=== PATIENT | male | born 1960 | race Caucasian/White ===

== ENCOUNTER 2016-08-09 21:21 | Emergency (ER) | payer OTHER ==
[~2016-08-09] VITALS: Ht 182.9 cm; Wt 108.9 kg
[~2016-08-09 21:21] MED LIST: ABILIFY 5 MG TAB5 M1 PO; ABILIFY MAINTE400 MG IM; ADVAIR 250-501 EACH IH; ALBUTEROL2.5 MG/31 INH; AMANTADINE 100100 MG PO; APAP500 PO; BACTRIM DS TAB1 EACH PO; BACTROBAN15 GM TP; BACTROBAN22 GM; BENTYL 20 MG TA20 M1 PO; BENZTROPINE ME0.5 MG PO; DEPAKOTE ER500 MG PO; DEPAKOTE500 MG PO; DYAZIDE 37.5-21 EACH PO; GEODON 80 MG CA80 MG PO; GEODON20 MG PO; GEODON60 MG PO; GLUCOPHAGE850 MG PO; GLUMETZA500 PO; GLYCOLAX17 GM PO; IBUPROFEN 400400 M2 PO; IBUPROFEN 800800 M1 PO; MIRALAX17 GM PO; MOM PO; OMEPRAZOLE20 M2 PO; PEPTO-BISM262 MG/15 PO; SEROQUEL 50 MG50 M1 PO; SEROQUEL200 MG PO; TAMSULOSIN HCL0.4 MG PO; TIROSINT100 MCG PO; TRIAMTERENE-HC1 EAC3 PO; [UNRECOGNIZED DRUG - OTHER] PO
[2016-08-09 21:47] LABS: BASOPHILS 0.7 % (0.0-2.0); EOSINOPHILS 0.1 % (0.0-3.0); HEMATOCRIT 41.8 % (42.0-52.0); HEMOGLOBIN 14.3 gm/dL (14.0-18.0); LYMPHOCYTES 10.7 % (24.0-44.0); MCH 28.9 pg (26.0-34.0); MCHC 34.2 g/dL (28.0-37.0); MCV 84.5 fL (80.0-100.0); PLATELET COUNT 236 thou/uL (150-400); POLYS 82.5 % (36.0-66.0); RBC 4.94 mil/uL (4.50-6.00); RDW 15.2 % (10.5-14.5); WBC 13.4 thou/uL (4.0-11.0)
[2016-08-09 21:48] LABS: MANUAL DIFF NO
[2016-08-09 21:57] LABS: CALCIUM 9.2 mg/dL (8.5-10.1); CREATININE 0.8 mg/dL (0.7-1.3); POTASSIUM 4.3 mmol/L (3.5-5.1)
[2016-08-09 22:02] LABS: ALBUMIN 3.7 g/dL (3.4-5.0); DIRECT BILIRUBIN 0.1 mg/dL (<0.1-0.3); TOTAL BILIRUBIN 0.6 mg/dL (<0.1-1.0); TOTAL PROTEIN 8.4 g/dL (6.4-8.2)
[2016-08-09 22:57] LABS: URINE BILIRUBIN NEGATIVE (Negative); URINE BLOOD NEGATIVE (Negative); URINE COLOR YELLOW; URINE GLUCOSE-RANDOM* NEGATIVE (Negative); URINE KETONES 1+ (Negative); URINE LEUKOCYTES-REFLEX NEGATIVE (Negative); URINE PROTEIN (DIPSTICK) 1+ (Negative)
[2016-08-09 23:13] LABS: HYALINE CASTS 0-3 Few /LPF (None Seen)
[2016-08-09 23:14] LABS: CRYSTALS None Seen /LPF (None Seen); SQUAMOUS None Seen /LPF (0-3); URINE RBC 3-10 Few /HPF (0-2); URINE WBC-REFLEX 6-15 Few /HPF (0-5); WBC CLUMPS Rare (None Seen)
[2016-08-09] MEDS ORDERED: BACTRIM DS TAB1 EACH PO (23:40)
[2016-08-09] MEDS ORDERED: LIPITOR40 MG PO (23:58)
[2016-08-09] MEDS ORDERED: LISINOPRIL20 MG PO (23:58)
[2016-08-10] MEDS ORDERED: BISMATROL262 MG/15 PO (00:01)
[2016-08-10] MEDS ORDERED: TUSSID DM SYRU240 ML PO (00:02)
== END 2016-08-10 00:35 ==
LOC: ER 21:21
PROVIDERS: Emergency Medicine
DX: R41.82 Altered mental status, unspecified (principal); N39.0 Urinary tract infection, site not specified; R51 Headache; J44.9 Chronic obstructive pulmonary disease, unspecified; I10 Essential (primary) hypertension; E11.9 Type 2 diabetes mellitus without complications; E66.9 Obesity, unspecified; Z68.32 Body mass index [BMI] 32.0-32.9, adult; F25.9 Schizoaffective disorder, unspecified

== ENCOUNTER → 2016-10-08 | Outpatient (CLI) | payer OTHER ==
[~2016-10-08] MED LIST changes: +BISMATROL262 MG/15 PO; +LIPITOR40 MG PO; +LISINOPRIL20 MG PO; +TUSSID DM SYRU240 ML PO
== END ==
LOC: RAD 10:37
DX: M25.561 Pain in right knee (principal)

== ENCOUNTER → 2017-07-31 | Outpatient (CLI) | payer OTHER | LOC: RAD 16:31 | DX: M25.462 Effusion, left knee (principal) ==

== ENCOUNTER 2018-07-09 22:34 | Inpatient (IN) | payer OTHER ==
[~2018-07-09] VITALS: Ht 188 cm; Wt 113.9 kg
--- NOTE | ~2018-07-09 | H ---
[facility] [place] [address] HISTORY AND PHYSICAL Name: YASH NAIK Room #: 240-P [facility] IN M.R.#: [id number] Admission: 07/10/18 ������������������ Attend Phys: Denzel Joseph MD, FAAF Discharge: ������������������ Date of : 64 Report #: [id number] THIS REPORT FOR: //name// CC: Denzel Joseph DATE OF SERVICE: 07/10/2018 CHIEF COMPLAINT: Mental status changes after aspiration; acute respiratory failure. HISTORY OF PRESENT ILLNESS: The patient is a 57-year-old white male well known to me as I have provided his primary medical care for a number of years now. He is a senior care resident with cognitive impairment, schizoaffective disorder, type 2 diabetes. 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 PAST MEDICAL HISTORY: Schizoaffective disorder; cognitive defect; COPD; gastritis; endovenous laser ablation on both legs in 2006; lazy eye, left side; left arm cellulitis; hypertension; type 2 diabetes; seasonal allergies; pedal edema; obesity; glaucoma. MEDICATIONS: Macrodantin 100 mg 1 p.o. b.i.d., Depakote ER 500 mg 1 p.o. b.i.d., tamsulosin 0.4 mg p.o. daily, albuterol q.i.d. p.r.n. inhalation, ibuprofen 800 mg q. 8 hours p.r.n. pain, metformin 500 mg 1 p.o. b.i.d. with meals, Cogentin 1 mg p.o. t.i.d., lisinopril 20 mg 2 p.o. daily, atorvastatin 40 mg 1 p.o. q.p.m., Bismatrol 262 mg q. 4 hours p.r.n. dyspepsia, Advair HFA 230 mcg per 21 mcg one inhalation p.o. at bedtime, Norvasc 10 mg 1 p.o. daily, dicyclomine 20 mg p.o. with evening meals, Proscar 5 mg 1 p.o. daily, latanoprost 0.005% eyedrops 1 drop both eyes at bedtime, levothyroxine 100 mcg p.o. daily, omeprazole 20 mg p.o. q. day, metoprolol tartrate 12.5 mg 1 p.o. b.i.d., Tylenol Extra Strength 2 p.o. q. 4 hours p.r.n. pain, Flexeril 10 mg 1 p.o. t.i.d. p.r.n. muscle spasms, milk of magnesia 30 mL p.o. at bedtime p.r.n. constipation, MiraLax 17 grams p.o. at bedtime p.r.n. constipation, Robitussin Cough and Chest liquid 1 teaspoon p.o. q. 12 hours p.r.n. cough, Biofreeze topically p.r.n. left knee pain, Aristada 1064 mg IM q. 2 months. ALLERGIES: No known drug allergies. SOCIAL HISTORY: Smoked cigarettes in the distant past, nondrinker. No recreational drugs. Lives at [facility] at senior care in [place], [place]. FAMILY HISTORY: Noncontributory. [facility] [address] [place] [address] HISTORY AND PHYSICAL Name: YASH NAIK Room #: 240-P [facility] IN M.R.#: [id number] Admission: 07/10/18 ������������������ Attend Phys: Denzel Joseph MD, FAAF Discharge: ������������������ Date of : 64 Report #: [id number] REVIEW OF SYSTEMS: Dyspnea. Mental status changes. Further system review is not obtainable. OBJECTIVE: VITAL SIGNS: Temperature is 35.6, pulse 94, respirations 22, blood pressure 175/104, pulse ox on 6 liters at the time this was done was 96%. He weighs 270 pounds or 122.47 kilograms. GENERAL: He appears comfortable on a ventilator, sedated with propofol. HEENT: Pupils equal, round, and reactive to light and accommodation. Extraocular muscles are intact. NECK: Supple. COR: S1 and S2. CHEST: Few coarse breath sounds. ABDOMEN: Soft, somewhat distended, nontender. EXTREMITIES: Large, but not edematous. LABORATORY DATA AND DIAGNOSTIC STUDIES: EKG showed sinus rhythm, rate 92 with a right bundle branch block, new compared to EKG of 02/2008. Initial blood gas; pH 7.28, pCO2 70.1, pO2 128.4, bicarb 32.3, total carbon dioxide 34.5, base excess 3.3, oxygen saturation calculated 98.1. CBC; white count is 10.0, hemoglobin 15.4, hematocrit 45.4, platelets 189,000, 70.8% segmented neutrophils, 21.1% lymphocytes, 7% monocytes. Serum chemistry: Sodium 134, potassium 3.8, chloride 95, CO2 31, anion gap is 8, BUN 17, creatinine 0.9, estimated GFR 88, glucose 208, calcium 9.1. Troponin is less than 0.06. Chest x-ray, initial film, possible right infrahilar pulmonary nodule with followup suggested. CT scan head, ventricular and sulcal prominence, most likely atrophic hydrocephalus, not entirely excluded; fourth ventricle relatively normal, stable compared to 2015 films; no acute process. CT scan chest, mild peribronchial thickening, left lower lobe atelectasis, developing pneumonia cannot be completely excluded; trace amount of fluid or debris is present in the airway without evidence of large solid particles; breathing motion artifact compromise evaluation, no evidence of acute pulmonary embolism, pleural effusion or pneumothorax. Soft tissue neck, no foreign body noted. ASSESSMENT: Mental status changes after aspiration, acute respiratory failure, developing aspiration pneumonia, schizoaffective disorder, cognitive impairment, type 2 diabetes. PLAN: Admit to ICU, ventilator management, and request Pulmonary consultation. We will proceed with IV antibiotics to cover aspiration. Blood sugar control, track labs serially. ��������������������������������������������� ���������������������������������������� By: ��������������������������������������������� [id number] [id number] Denzel Joseph MD, FAAFP, FACEP /nt
[~2018-07-09 22:34] MED LIST changes: -BENZTROPINE ME0.5 MG PO; +BENZTROPINE MES1 MG PO; -LISINOPRIL20 MG PO; +LISINOPRIL40 MG PO; +MACRODANTIN100 MG PO
[2018-07-09 23:02] VITALS: BP 175/104
[2018-07-09] MEDS ORDERED: ADVAIR 250-501 EACH INH (23:19)
[2018-07-09] MEDS ORDERED: AMLODIPINE BESY10 MG PO (23:20)
[2018-07-09] MEDS ORDERED: PROSCAR 5MG TABL5 MG PO (23:21)
[2018-07-09] MEDS ORDERED: DICYCLOMINE HCL20 MG PO (23:21)
[2018-07-09] MEDS ORDERED: LATANOPROST 0.7.5 ML (23:22)
[2018-07-09] MEDS ORDERED: SYNTHROID100 MC1 PO (23:22)
[2018-07-09] MEDS ORDERED: OMEPRAZOLE 20 M20 M1 PO (23:24)
[2018-07-09 23:40] LABS: ABSOLUTE NEUTROPHILS 7.1 thou/uL (1.4-8.2); BASOPHILS 0.6 % (0.0-2.0); EOSINOPHILS 0.5 % (0.0-3.0); HEMATOCRIT 45.4 % (42.0-52.0); HEMOGLOBIN 15.4 gm/dL (14.0-18.0); LYMPHOCYTES 21.1 % (24.0-44.0); MCH 30.1 pg (26.0-34.0); MCHC 33.9 g/dL (28.0-37.0); MCV 88.9 fL (80.0-100.0); PLATELET COUNT 189 thou/uL (150-400); POLYS 70.8 % (36.0-66.0); RDW 13.4 % (10.5-14.5)
[2018-07-09 23:45] LABS: ANION GAP 8 mmol/L (7-16); BUN 17 mg/dL (7-18); CALCIUM 9.1 mg/dL (8.5-10.1); CHLORIDE 95 mmol/L (98-107); CO2 31 mmol/L (21-32); CREATININE 0.9 mg/dL (0.7-1.3); GLUCOSE 208 mg/dL (74-106); POTASSIUM 3.8 mmol/L (3.5-5.1); SODIUM 134 mmol/L (136-145)
[2018-07-09 23:46] LABS: BE(vivo) -0.6 mmol/L (-2 to +3); HCO3 24.1 mmol/L (22.0-26.0); PCO2 40.3 mmHg (35.0-45.0); PO2 60.9 mmHg (80.0-100.0); pH 7.395 (7.360-7.450); sO2 91.3 % (92.0-98.0)
[2018-07-09] MEDS ORDERED: METOPROLOL TART25 MG PO (23:51)
[2018-07-09] MEDS ORDERED: NON-ASPIRIN EX500 M1 PO (23:53)
[2018-07-09 23:54] LABS: TROPONIN-I <0.06 ng/mL (<0.06)
[2018-07-09] MEDS ORDERED: FLEXERIL PO (23:58)
[2018-07-09] MEDS ORDERED: MILK OF MA400 MG/5 M PO (23:59)
[2018-07-10] VITALS (35 sets, daily range): BP systolic 104–170; BP diastolic 57–98
[2018-07-10] MEDS ORDERED: MIRALAX17 GM PO (00:01)
[2018-07-10] MEDS ORDERED: ROBITUSSIN COU237 M2 PO (00:02)
[2018-07-10] MEDS ORDERED: BIOFREEZE118 ML TOP (00:03)
[2018-07-10] MEDS ORDERED: ARISTADA1064 MG/3. IM (00:05)
[2018-07-10 00:17] LABS: URINE BILIRUBIN NEGATIVE (Negative); URINE BLOOD NEGATIVE (Negative); URINE CLARITY CLEAR; URINE COLOR YELLOW; URINE GLUCOSE-RANDOM* 1+ (Negative); URINE KETONES NEGATIVE (Negative); URINE LEUKOCYTES-REFLEX NEGATIVE (Negative); URINE NITRITE-REFLEX NEGATIVE (Negative); URINE PROTEIN (DIPSTICK) TRACE (Negative); URINE SPECIFIC GRAVITY 1.025 (1.005-1.035)
--- NOTE | 2018-07-10 00:51 | NUR ---
PER FACILITY STAFF AND PT ADVANCE DIRECTIVE HE IS A FULL CODE
[2018-07-10 01:30] LABS: BE(vivo) 3.1 mmol/L (-2 to +3); HCO3 30.7 mmol/L (22.0-26.0); PCO2 59.1 mmHg (35.0-45.0); PO2 63.5 mmHg (80.0-100.0); pH 7.333 (7.360-7.450); sO2 90.4 % (92.0-98.0)
[2018-07-10 02:56] LABS: BE(vivo) 3.3 mmol/L (-2 to +3); HCO3 32.3 mmol/L (22.0-26.0); PO2 128.4 mmHg (80.0-100.0); sO2 98.1 % (92.0-98.0)
[2018-07-10 02:58] LABS: PCO2 70.1 mmHg (35.0-45.0); pH 7.282 (7.360-7.450)
--- NOTE | 2018-07-10 07:50 | NUR ---
ADMIT FROM EMRGENCY ROOM ON BIPAP. ADMITING DIAGNOSIS OF ALTERED MENTAL STATUS AND HYPOXIA. ARIVED ON BIPAP DIFFICULTY BREATHING TRANSFERED TO ICU BED IN ROOM 240. DR. BLOOD INTUBATED AND RESPIRATORY AT BEDSIDE ASSISTING. INTUBATED SUCCESSFULL WITH SEDATION MEDS GIVEN PRIOR. CHEST X RAY DONE. PROPER PLACEMENT LUNGS ARE CLEAR. OG TUBE PLACED TO SUCTION. OWEN TO DD WITH INGRIS URINE. ABDOMEN IS ROUND AND FIRM. BOWEL SOUNDS HYPOACTIVE. SCDS ON BILATERAL. PULMONARY CONSULTED AND ADMITING DR. PUGH NOTIIFED OF PT'S ARIVAL. WILL CONTINUE TO ASSESS AND MONITOR PER NURSING. RESTRAINTS X2 WRIST. PT WAS PULLING AT DEVICES. PICC LINE PAGED FOR ACCESS.
--- NOTE | 2018-07-10 08:02 | EKG ---
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: jose daniel : 1960 Requested By: Kelton Ludwig Order Number: [id number] MD: Kurt David Measurements Intervals [place] Rate: 92 P: 70 [place]: 141 QRS: -100 QRSD: 169 T: 54 QT: 408 QTc: 505 Interpretive Statements Sinus rhythm RBBB and LAFB Compared to ECG 03/05/2008 17:08:38 Left anterior fascicular block now present Right bundle-branch block now present Poor R-wave progression no longer present Left-axis deviation no longer present Electronically Signed On 07-10-2018 8:01:52 CDT by Kurt David [email or web address] ��������������������������������������������� <ELECTRONICALLY SIGNED> ���������������������������������������� By: Kurt David MD ��������������������������������������������� 07/10/18 0801 [id number] Kurt David MD /EPI
[2018-07-10 08:15] LABS: CREATININE 0.8 mg/dL (0.7-1.3); MAGNESIUM 1.7 mg/dL (1.8-2.4); POTASSIUM 4.2 mmol/L (3.5-5.1)
[2018-07-10 09:19] LABS: BE(vivo) 0 mmol/L (-2 to +3); HCO3 24.4 mmol/L (22.0-26.0); PCO2 38.8 mmHg (35.0-45.0); PO2 127.6 mmHg (80.0-100.0); pH 7.416 (7.360-7.450); sO2 98.6 % (92.0-98.0)
--- NOTE | 2018-07-10 10:34 | NUR ---
VASCULAR ACCESS CONSULTED FOR PICC PLACEMENT. PT'S LABS,MEDS,HISTORY,ORDER AND CONSENT VERIFIED. PT ON PROPOFOL. PT WAS PREPPED AND DRAPED FOR MAX BARRIER PRECAUTIONS. LUZ BASILIC WAS WIDELY PATENT WITH USG,1% LIDOCAINE GIVEN SQ. 5FR TL POWER PICC TRIMMED TO 47CM INSERTED TO 1CM EXTERNAL. PICC SECURED ,STAT CXR ORDERED.
--- NOTE | 2018-07-10 13:10 | NUR ---
CXR CONFIRMED PLACEMENT OF PICC IN CAJ. PICC RELEASED FOR IMMEDIATE USE PER PROTOCOL TO LUPE CARTER
--- NOTE | 2018-07-10 15:40 | NUR ---
PT ADMITTED RELATED TO ALTERED MENTAL STATUS, HYPOXIA, COPD, DM SCHIZOPHRENIA. CM REVIEWED CHART AND SPOKE WITH CARE TEAM. PT IS SADATED AND INTUBATED. CM CALLED PT'S COUSIN/DPJEAN ARENASOlivier ROLLE. HE INDICATED THAT PT LIVES AT [facility]. 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 HE STATED THAT WE COULD ALSO KEEP DELPHINE CAREGIVER OVER AT [facility] UPDATED ON PT'S PROGRESS. 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 ISIDRO INDIATED THAT PLAN WOULD BE FOR PT TO RETURN TO [facility] ONCE MEDICALLY STABLE. CM TO FOLLOW INDICATED WITH DC PLANNING.
[2018-07-11] VITALS (42 sets, daily range): BP systolic 103–184; BP diastolic 55–109
[2018-07-11 03:56] LABS: BE(vivo) 3.8 mmol/L (-2 to +3); HCO3 26.9 mmol/L (22.0-26.0); PCO2 35.8 mmHg (35.0-45.0); PO2 79.2 mmHg (80.0-100.0); pH 7.493 (7.360-7.450); sO2 96.6 % (92.0-98.0)
[2018-07-11 05:34] LABS: HEMATOCRIT 41.6 % (42.0-52.0); HEMOGLOBIN 14.2 gm/dL (14.0-18.0); MCH 30.2 pg (26.0-34.0); MCHC 34.3 g/dL (28.0-37.0); RBC 4.72 mil/uL (4.50-6.00); RDW 13.2 % (10.5-14.5); WBC 11.7 thou/uL (4.0-11.0)
[2018-07-11 05:35] LABS: CALCIUM 8.9 mg/dL (8.5-10.1); CREATININE 0.8 mg/dL (0.7-1.3); POTASSIUM 3.8 mmol/L (3.5-5.1)
--- NOTE | 2018-07-11 06:08 | NUR ---
No event last night. No changes from last assessment. All lines remain inplaced. Continue working toward POCs.
--- NOTE | 2018-07-11 19:19 | HC ---
[facility] [place] [address] [place] [address] CONSULTATION Name: YASH NAIK Room #: [facility] IN M.R.#: [id number] Admission: 07/10/18 ������������������ Attend Phys: Denzel Joseph MD, [facility] Discharge: ������������������ Date of : 64 Report #: [id number] THIS REPORT FOR: //name// CC: Denzel Joseph PULMONARY CONSULTATION PRIMARY PHYSICIAN: Denzel Joseph M.D. REASON FOR REFERRAL: Respiratory failure. HISTORY OF PRESENT ILLNESS: The patient is a 57-year-old white male who was brought to the ED via EMS for possible aspiration at dinner. Since admission overnight, the patient required urgent intubation early this morning. A Pulmonary consultation was requested. The patient resides at a facility. He was apparently found slumped over on the table, minimally responsive. He was apparently eating a hamburger. While en route to the Emergency Room, he apparently coughed up a piece of hamburger. The patient became more responsive. He was admitted overnight to the floor. Apparently, the patient became more hypoxic and more unresponsive. He was placed on BiPAP. He was urgently intubated by Dr. Young. Currently, he is transferred to the ICU. He is sedated. Chest x-ray on admission showed no obvious infiltrates. CT angiogram noted. Mild left-sided pleural effusion, minimal infiltrates in the left lower lobe. Followup chest x-ray following intubation shows new right lower lobe infiltrates. PAST MEDICAL HISTORY: Notable for schizoaffective disorder, cognitive deficits, COPD, history of cellulitis involving the left arm, hypertension, diabetes mellitus, seasonal allergies, obesity and history of glaucoma. PAST SURGICAL HISTORY: Unknown. ALLERGIES: None to medications. MEDICATIONS: Medications from the facility are reviewed. These include Depakote, tamsulosin, nebulized albuterol, Motrin, Glucophage, Cogentin, Zestril, Lipitor, Bismatrol, Advair 230/21 mcg 1 puff at bedtime, amlodipine, Proscar, latanoprost, Synthroid, omeprazole, metoprolol, aspirin, Flexeril, magnesium oxide, MiraLax and Biofreeze. FAMILY HISTORY: Unknown. [facility] [address] [place] [address] CONSULTATION Name: YASH NAIK Room #: 240-P [facility] IN .R.#: [id number] Admission: 07/10/18 ������������������ Attend Phys: Denzel Joseph MD, FAAF Discharge: ������������������ Date of : 64 Report #: [id number] SOCIAL HISTORY: Past history of tobacco use. No alcohol history. He resides in a facility. REVIEW OF SYSTEMS: Deferred as the patient is intubated. PHYSICAL EXAMINATION: GENERAL: He is sedated, in no distress. VITAL SIGNS: Temperature is 96 degrees Fahrenheit, pulse is 90, respiratory rate is 20 and blood pressure was at 200/100 mmHg; currently, it is 126/83 mmHg. HEENT: Normocephalic, atraumatic. He is orally intubated. NECK: Supple, without lymphadenopathy or thyromegaly. CHEST: Breath sounds are fair. Crackles in the base. No wheezes. CARDIOVASCULAR: Normal S1, S2. No murmurs or gallops. There is no JVD. There is no carotid bruit. Pulses are 2+/4+ bilaterally. ABDOMEN: Soft, nontender. No organomegaly or masses felt. GENITOURINARY: Deferred. RECTAL: Deferred. EXTREMITIES: No cyanosis, clubbing or edema. NEUROLOGICAL EXAMINATION: Deferred. LABORATORY DATA: Chest x-ray as mentioned above. CT head was notable for hydrocephalus, atrophy involving the ventricular and sulcal prominence likely due to atrophy. CT angiogram showed no evidence of pulmonary embolus. Electrolytes are normal. WBC 10,000, hemoglobin 15.4 and platelets are normal. Arterial blood gas revealed pH of 7.41, pCO2 of 38 and pO2 of 127 on FiO2 at 80%. IMPRESSION: 1. Acute hypercapnic hypoxic respiratory failure in this 57-year-old white male. Etiology likely related to recent aspiration. Hypercapnia suggests a component hypoventilation along with chronic obstructive pulmonary disease exacerbation. 2. Schizoaffective disorder with cognitive impairments. 3. Chronic obstructive pulmonary disease, severity unknown. 4. Hypertension. 5. Diabetes mellitus. 6. Seasonal allergies. 7. Glaucoma. RECOMMENDATIONS: We will continue mechanical ventilation, wean O2 for saturation 90%, broad-spectrum antibiotics to cover aspiration pneumonia, DVT and GI prophylaxis recommended and bronchodilators. I do not think we need steroids at this time. [address] [address] CONSULTATION Name: YASH NAIK Room #: 240-P [facility] IN M.R.#: [id number] Admission: 07/10/18 ������������������ Attend Phys: Denzel Joseph MD, FAAF Discharge: ������������������ Date of : 64 Report #: [id number] Thank you for this consultation. ��������������������������������������������� <ELECTRONICALLY SIGNED> ���������������������������������������� By: Pedro Pablo Gamez MD ��������������������������������������������� 07/11/18 1919 1647 0248 Pedro Pablo Gamez MD /nt
[2018-07-12] VITALS (39 sets, daily range): BP systolic 108–156; BP diastolic 54–83
--- NOTE | 2018-07-12 05:28 | NUR ---
ASSUMED PATIENT CARE AT 1900. REVIEWED CARE PLAN, LABS, MEDS, AND ORDERS. PATIENT LYING IN BED AND IS CURRENTLY ON THE VENTILATOR. PROPOFOL IS INFUSING. PATIENT FOLLOWS SIMPLE COMMANDS. VS ARE STABLE. NO DISTRESS NOTED. HOURLY ROUNDING COMPLETED. PATIENT PROGRESSING TOWARDS GOAL.
[2018-07-12 05:32] LABS: HEMATOCRIT 40.8 % (42.0-52.0); HEMOGLOBIN 13.6 gm/dL (14.0-18.0); MCH 29.5 pg (26.0-34.0); MCHC 33.4 g/dL (28.0-37.0); MCV 88.4 fL (80.0-100.0); RBC 4.61 mil/uL (4.50-6.00); RDW 13.6 % (10.5-14.5); WBC 13.3 thou/uL (4.0-11.0)
[2018-07-12 05:34] LABS: CALCIUM 8.3 mg/dL (8.5-10.1); CREATININE 0.8 mg/dL (0.7-1.3); POTASSIUM 3.9 mmol/L (3.5-5.1)
--- NOTE | 2018-07-12 18:35 | NUR ---
PATIENT ASSESSMENTS AND VITAL SIGNS DOCUMENTED. TUBE FEEDING STARTED PER PHYSICIAN ORDER. NO VISITORS TODAY. WITH LIGHTENED SEDATION HE BECOMES RESTLESS. HE FOLLOWS SIMPLE GRIPPING COMMANDS, NO OTHER COMMANDS. HE BECOMES HYPERTENSIVE WHEN SEDATION LIGHTENED UP. NURSE TO CONTINUE TO MONITOR PATIENT STATUS.
[2018-07-13] VITALS (31 sets, daily range): BP systolic 116–185; BP diastolic 56–90
[2018-07-13 04:48] LABS: BE(vivo) 3.2 mmol/L (-2 to +3); HCO3 28.5 mmol/L (22.0-26.0); PO2 79.4 mmHg (80.0-100.0); sO2 95.8 % (92.0-98.0)
[2018-07-13 06:09] LABS: HEMATOCRIT 38.6 % (42.0-52.0); MCHC 33.7 g/dL (28.0-37.0); RBC 4.33 mil/uL (4.50-6.00); RDW 14.1 % (10.5-14.5); WBC 8.9 thou/uL (4.0-11.0)
[2018-07-13 06:14] LABS: CREATININE 0.8 mg/dL (0.7-1.3); POTASSIUM 4.3 mmol/L (3.5-5.1)
--- NOTE | 2018-07-13 07:46 | NUR ---
PT INTUBATED AND ON VENT; SEDATED WITH PROPOFOL. PT IN SINUS TACH EARLIER LAST NIGHT AND WAS FEBRILE WITH A TEMP OF 99.8 AXILLARY. COOLING METHODS USED AND TYLENOL GIVEN. PT'S TEMP LOWERED AND HR CAME DOWN. PT SINUS CRISTO EARLIER THIS AM AND MODERATELY SEDATED; PT RESPONDING TO PAIN, BUT NOT FOLLOWING COMMANDS. PROPOFOL GTT TITRATED DOWN. NO OTHER SIGNIFICANT EVENTS. WILL CONTINUE TO MONITOR.
--- NOTE | 2018-07-13 09:14 | NUR ---
Recommend change tube feeding to vital high protein goal of 50ml/hr. Add 1 packet beneprotein with each flush. Recommend discontinue IVF.
--- NOTE | 2018-07-13 18:38 | NUR ---
ASSUMED CARE AT 0700. PT ON VENT AND HAD CPAP TRIAL THIS AM BUT FAILED DUE TO HIGH RESPIRATORY RATE. PT TURNED Q2 HOURS. SKIN INTACT. PT HAS HAD SMALL SECRETIONS OF BEIGH SPUTUM. PT HAD VERY SMALL SMEAR, BM. PT SWITCHED FROM JEVITY 1.5 TO VITAL HP TUBE FEEDING. PT IS AT GOAL RATE OF 50CC/HR. PT REMAINS ON PROPOFOL GTT.
[2018-07-14] VITALS (43 sets, daily range): BP systolic 118–175; BP diastolic 60–88
[2018-07-14 05:46] LABS: CALCIUM 8.2 mg/dL (8.5-10.1); CREATININE 0.7 mg/dL (0.7-1.3); POTASSIUM 4.4 mmol/L (3.5-5.1)
--- NOTE | 2018-07-14 07:47 | NUR ---
PT INTUBATED AND ON VENT, SEDATED WITH PROPOFOL GTT. PT WAS LIGHTLY SEDATED INITIALLY AND WAS ABLE TO FOLLOW COMMANDS AND SHAKE HIS HEAD IN RESPONSE TO YES/NO QUESTIONS. PT OPENED EYES TO VERBAL COMMAND. PT WAS ALSO SOMEWHAT RESTLESS, SO SEDATION WAS TITRATED UP SLIGHTLY. PT WAS HYPERTENSIVE INITIALLY, BUT BP LOWERED ON OWN, WITHOUT HYDRALAZINE. PT BEGAN TO GET MORE HYPERTENSIVE THIS MORNING AND HYDRALAZINE WAS GIVEN ONCE. PT TOLERATING TUBE FEEDS WITH LOW RESIDUALS. NO BM OVERNIGHT. PT'S ABDOMEN APPEARS MORE DISTENDED, BUT REMAINS SOFT AND BS ARE AUDIBLE. PT HAD NO MAJOR CHANGES OR EVENTS OVERNIGHT. WILL CONTINUE TO MONITOR.
[2018-07-14 15:54] LABS: HCO3 29.6 mmol/L (22.0-26.0); PCO2 43.2 mmHg (35.0-45.0); PO2 91.4 mmHg (80.0-100.0); pH 7.453 (7.360-7.450); sO2 97.3 % (92.0-98.0)
[2018-07-15] VITALS (35 sets, daily range): BP systolic 102–172; BP diastolic 53–86
[2018-07-15 06:36] LABS: CREATININE 0.7 mg/dL (0.7-1.3); POTASSIUM 4.4 mmol/L (3.5-5.1)
--- NOTE | 2018-07-15 07:41 | NUR ---
PT INTUBATED AND ON VENT; SEDATED WITH PROPOFOL GTT. WHEN SEDATION IS LIGHTENED, PT OPENS EYES AND FOLLOWS SIMPLE COMMANDS. PT IS TOLERATING TUBE FEEDS AT GOAL RATE; RESIDUALS LAST NIGHT WERE 40 CC OR LESS. SMALL BM THIS MORNING. NO SIGNIFICANT CHANGES OVERNIGHT. WILL CONTINUE TO MONITOR.
[2018-07-16] VITALS (29 sets, daily range): BP systolic 121–165; BP diastolic 62–84
[2018-07-16 04:11] LABS: CALCIUM 8.4 mg/dL (8.5-10.1); CREATININE 0.8 mg/dL (0.7-1.3); POTASSIUM 4.4 mmol/L (3.5-5.1)
[2018-07-16 04:46] LABS: ABSOLUTE NEUTROPHILS 9.1 thou/uL (1.4-8.2); BASOPHILS 0.1 % (0.0-2.0); EOSINOPHILS 0.1 % (0.0-3.0); HEMATOCRIT 41.1 % (42.0-52.0); HEMOGLOBIN 13.9 gm/dL (14.0-18.0); LYMPHOCYTES 10.6 % (24.0-44.0); MCH 30.3 pg (26.0-34.0); MCHC 33.7 g/dL (28.0-37.0); MCV 89.8 fL (80.0-100.0); MONOCYTES 5.3 % (1.0-8.0); PLATELET COUNT 182 thou/uL (150-400); POLYS 83.9 % (36.0-66.0); RBC 4.58 mil/uL (4.50-6.00); RDW 13.4 % (10.5-14.5); WBC 10.9 thou/uL (4.0-11.0)
--- NOTE | 2018-07-16 06:13 | NUR ---
ASSUMED CARE OF PT AT 1900. PT INTUBATED AND SEDATED ON PROPOFOL. PT IS ABLE TO FOLLOW SIMPLE COMMANDS AND NOD YES/NO TO QUESTIONS. BILATERAL SOFT WRIST RESTRAINS IN PLACE DUE TO PT IMPULSIVITY. CAREGIVER, DELPHINE, UPDATED ON PT CARE AT 2030 AT BEDSIDE. VSS. PT DOES BECOME BRADYCARDIC AT REST. BED BATH GIVEN AND LINENS CHANGED BY RN. WILL CONTINUE TO MONITOR. PT MAKING PROGRESS TOWARDS GOALS.
--- NOTE | 2018-07-16 11:45 | NUR ---
PT STATING THAT HE FEELS MUCH BETTER WITH HIS BREATHING TODAY AND SO MUCH BETTER THAN WHEN HE ARRIVED. HE ISN'T SHORT OF BREATH WITH TALKING, GETTING INTO CHAIR. 02 TITRATED OFF WITH SA02 REMAINING 92-93%. SR, HR IN LOW 100'S WITH ACTIVITY THEN QUICKLY RETURNS TO SR. TOLERATING DIET, VOIDING ADEQUATE AMOUNTS. DR. ALMODOVAR PAGED SINCE PT REQUESTED ADDITIONAL SCRIPTS, ONE FOR HIS NEBULIZER AND ONE INHALER. DISCHARGE INSTRUCTIONS GIVEN, PT VERBALIZED UNDERSTANDING. PT TO FOLLOW UP WITH DR. ZAIDI AND HAS HIS BUSINESS CARD. DISCHARGE VITALS: 97.4, SR-91, RR-19, 136/85, SA02 93 %. DISCHARGED PER WHEELCHAIR WITH RN ACCOMPANING PT TO VEHICLE.
[2018-07-17] VITALS (38 sets, daily range): BP systolic 97–149; BP diastolic 51–77
--- NOTE | 2018-07-17 04:34 | NUR ---
NO NEW CHANGES. ASSESSMENTS AND VITALS CHARTED. SEDATION VACATION AT 1999, PT. FOLLOWS COMMANDS AND CAN SHAKE HEAD TO SIMPLE YES/NO QUESTIONS. PT. REMAINS HEMODYNAMICALLY STABLE AND MAINTAINS OXYGENATION THROUGH VENTILATION. CPAP TRIAL THIS AM. WILL CONTINUE TO MONITOR.
[2018-07-17 05:28] LABS: CALCIUM 8.5 mg/dL (8.5-10.1); CREATININE 0.6 mg/dL (0.7-1.3); POTASSIUM 3.9 mmol/L (3.5-5.1)
[2018-07-17 08:37] LABS: BE(vivo) 8.1 mmol/L (-2 to +3); HCO3 33.7 mmol/L (22.0-26.0); PCO2 50.3 mmHg (35.0-45.0); pH 7.444 (7.360-7.450); sO2 95.7 % (92.0-98.0)
--- NOTE | 2018-07-17 09:05 | NUR ---
If able to dc propofol, pt will need new tube feed goal rate of 70ml/hr. Continue to add beneprotein to water flushes
--- NOTE | 2018-07-17 16:12 | NUR ---
ALEXIA reviewed chart. Pt remains on the ventilator and is attempting cpap trials. Pt is in bilateral wrist restraints due to pt pulling on lines and agitation. Pt will need therapy orders when more alert and able to follow commands to determine discharge needs. ALEXIA spoke with pt's cousin/DPOA, Tomas, via phone to provide update. ALEXIA also spoke with pt's caregiver at [facility] to provide update. [facility] staff check on pt daily. ALEXIA is following to assist as needed with discharge planning.
--- NOTE | 2018-07-17 20:31 | NUR ---
SHIFT SUMMARY: VENT SETTINGS UNCHANGED. DID 20 MIN WEANING TRIAL, RESP RATE IN THE 30'S AND MORE ANXIOUS, TRIAL ABORTED. CONTINUES TO HAVE COPIOUS AMOUNTS OF ORAL SECRETIONS. PRECIDEX INITIATED AT 0,4 MCG/KG/HR AND TITRATED. PROPOFOL TAPPERED AND TITRATED TO KEEP RASS SCORE -1 TO +1. TUBE FEEDING HAD SMALL RESIDUAL UNTIL 1600 AND HAD 150 ML OF RESIDUAL.
[2018-07-18] VITALS (32 sets, daily range): BP systolic 105–161; BP diastolic 53–79
--- NOTE | 2018-07-18 07:33 | NUR ---
NO ACUTE CHANGES OVERNIGHT, PT STABLE ON THE VENT, SETTINGS UNCHANGED. PT FOLLOWS COMMANDS. PROPOFOL OFF AT 0500, PRECEDEX AT 0.5. TUBE FEEDINGS HELD AT 0430, RESIDUAL 275ML, ADQUATE OUTPUT FROM RAJAN OWEN BM THIS AM . RESTRAINTS MAINTAINED.
[2018-07-18 10:23] LABS: BE(vivo) 3.4 mmol/L (-2 to +3); HCO3 28.5 mmol/L (22.0-26.0); PCO2 45.3 mmHg (35.0-45.0); PO2 70.3 mmHg (80.0-100.0); pH 7.417 (7.360-7.450); sO2 94.3 % (92.0-98.0)
--- NOTE | 2018-07-18 18:45 | NUR ---
SHIFT SUMMARY: PATIENT PROGRESSING TOWARDS EXTUBATION HE WAS ABLE TO DO A CPAP TRIAL WITH LESS DISTRESS TODAY. TUBE FEEDINGS RESUMED AT 30 ML/HR WITH SMALL RESIDUALS. HAD U/O OF 2000 ML AFTER LASIX
[2018-07-19] VITALS (45 sets, daily range): BP systolic 104–166; BP diastolic 51–85
[2018-07-19 05:32] LABS: HCO3 33.5 mmol/L (22.0-26.0); PCO2 49.3 mmHg (35.0-45.0); PO2 83.8 mmHg (80.0-100.0); sO2 96.6 % (92.0-98.0)
[2018-07-19 06:14] LABS: ABSOLUTE NEUTROPHILS 11.1 thou/uL (1.4-8.2); BASOPHILS 0.6 % (0.0-2.0); EOSINOPHILS 1.1 % (0.0-3.0); HEMATOCRIT 41.8 % (42.0-52.0); LYMPHOCYTES 17.3 % (24.0-44.0); MCH 29.8 pg (26.0-34.0); MCHC 33.6 g/dL (28.0-37.0); MCV 88.8 fL (80.0-100.0); MONOCYTES 5.6 % (1.0-8.0); PLATELET COUNT 190 thou/uL (150-400); POLYS 75.4 % (36.0-66.0); RBC 4.71 mil/uL (4.50-6.00); RDW 13.3 % (10.5-14.5); WBC 14.8 thou/uL (4.0-11.0)
[2018-07-19 06:28] LABS: ALBUMIN 2.5 g/dL (3.4-5.0); CALCIUM 8.4 mg/dL (8.5-10.1); CREATININE 0.8 mg/dL (0.7-1.3); POTASSIUM 4.3 mmol/L (3.5-5.1); TOTAL BILIRUBIN 0.7 mg/dL (<0.1-1.0); TOTAL PROTEIN 6.5 g/dL (6.4-8.2)
--- NOTE | 2018-07-19 07:53 | NUR ---
PT INTUBATED AND ON VENT. LIGHTLY SEDATED WITH PRECEDEX GTT. PT OPENS EYES, FOLLOWS COMMANDS, AND ATTEMPTS TO MOUTH WORDS. IF ON LOW AMOUNT OF SEDATION, FOR A LONG PERIOD OF TIME, PT WILL GAG ON ET TUBE AND TRASH HEAD BACK AND FORTH. ET TUBE AND OG TUBE OUT SEVERAL CM FROM ORIGINAL LENGTH. OG TUBE ADVANCED BACK TO 65 CM. RT ATTEMPTED TO ADVANCE ET TUBE, BUT PT DID NOT TOLERATE; TUBE LEFT AT 23 CM AT THE LIP. CXR AND KUB OBTAINED AND CONFIRMED CORRECT POSITION OF BOTH TUBES. TUBES REMAINED AT THE MARKED SITE FOR THE REST OF THE NIGHT. WILL CONTINUE TO MONITOR.
[2018-07-19 12:03] LABS: BE(vivo) 4.7 mmol/L (-2 to +3); HCO3 29.8 mmol/L (22.0-26.0); PCO2 45.8 mmHg (35.0-45.0); PO2 77.7 mmHg (80.0-100.0); pH 7.431 (7.360-7.450); sO2 95.7 % (92.0-98.0)
--- NOTE | 2018-07-19 16:27 | NUR ---
ALEXIA reviewed chart and spoke with nursing and attending physician. Pt was extubated this afternoon and able to follow commands. Therapy ordered to evaluate pt for discharge needs. SW requested 5N rehabilitation clerk to follow pt for possible admission to inpt acute rehab when medically stable. ALEXIA is following to assist as needed with discharge planning.
--- NOTE | 2018-07-19 17:34 | NUR ---
ASSUMED CARE OF PT AT APPROX 0700. PT IS DROWSY AND SEDATED BUT ARROUSABLE AND ABLE TO NOD HEAD TO YES AND NO QUESTIONS. MONITORED ON TELE AND ABLE TO MAINTAIN 02 SAT >90 ON VENTILATOR SETTINGS. ASSESSMENT CHARTED. NO SIGNS OF PAIN. OWEN TO DD. PT WAS PUT ON CPAP TRIAL, TOLERATED WELL AND THEN WAS EXTUBATED AT 1340. PT WEANED OFF SEDATION AND IS ALERT AND ORIENTED AND ABLE TO MAINTAIN 02 SAT > 90 ON CURRENT 02 SETTINGS. DENIES PAIN AND STATES THAT HE HAS NO IDEA HOW LONG HE HAS BEEN IN HERE. UPDATED PT ON SITUATION AND POC AND PT COMMUNICATES UNDERSTANDING. PT IS MAKING GOOD PROGRESS TOWARDS POC GOALS, WILL CONTINUE TO MONITOR.
[2018-07-20] VITALS (43 sets, daily range): BP systolic 90–176; BP diastolic 45–85
[2018-07-20 00:19] LABS: BE(vivo) 5.3 mmol/L (-2 to +3); HCO3 31.2 mmol/L (22.0-26.0); pH 7.413 (7.360-7.450); sO2 87.3 % (92.0-98.0)
[2018-07-20 00:21] LABS: PO2 52.8 mmHg (80.0-100.0)
--- NOTE | 2018-07-20 07:45 | NUR ---
PT EXTUBATED YESTERDAY AFTERNOON. INTIALLY PT ON 4L O2 NC. PT HAD A CONSISTENT CONGESTED COUGH, BUT WAS UNABLE TO COUGH UP ANY SECRETIONS. PT HAD EXCESSIVE ORAL SECRETIONS AND REQUIRED FREQUENT SUCTIONING. AROUND 2300, PT'S O2 SAT DROPPED, PT TACHYPNEIC, AND IN RESP DISTRESS. PT SWITCHED TO VENTIMASK WHICH WAS NOT EFFECTIVE. ABG OBTAINED, PO2 CRITICALLY LOW. DR. VIERA NOTIFIED; ORDERS FOR PT TO BE PUT ON BIPAP GIVEN. PT PLACED ON BIPAP WITH 80% FIO2. PT CONTINUED TO BE RESTLESS AND CONFUSED. PRECEDEX GTT RESTARTED AT LOW DOSE. EVENTUALLY PT CALMED DOWN AND SLEPT FOR A FEW HOURS. PT CALM AND MORE ORIENTED THIS MORNING, PRECEDEX GTT TURNED OFF. PT REMAINS ON BIPAP AT THIS TIME. PT WILL HAVE SWALLOW EVAL TODAY. WILL CONTINUE TO MONITOR
--- NOTE | 2018-07-20 15:42 | NUR ---
ALEXIA reviewed chart. Pt was extubated yesterday. Orders for therapy and 5N consult placed. Pt on bipap support and able to work with therapy. No weekend discharge anticipated. ALEXIA spoke with pt's cousin/DPOA, Tomas, via phone to provide update and discuss possible d/c to 5N when medically stable. Tomas is aware and agreeable with plan. Choice of Vendor form place on pt's chart. ALEXIA also spoke with Randee, caregiver at pt's halfway to provide update. ALEXIA is following to assist as needed with discharge planning.
--- NOTE | 2018-07-20 16:24 | NUR ---
PT IS ALERT TO PERSON AND SELF. CONFUSED AND FORGETFULL AT TIMES. LUNGS ARE COARSE TO DIMINISHED. ON VENTI MASK AT 8 LITERS TODAY SATURATION IS 94 PERCENT THEN SWITCHED THIS AFTERNOON TO BIPAP OXYGEN SATURATION IS 100 PERCENT. OWEN TO DD WITH CLEAR YELLOW. BOWEL SOUNDS HYPOACTIVE X4. SCDS ON BILATERAL GENERAL EDEMA 3 PLUS. PT WATCHES TV AT TIMES. SWALLOW TEST IS HONEY THICKEN WITH MEDS. NO SEDATION. USES CALL LIGHT IF HE NEEDS ASSISTANCE FROM STAFF. SR WITH BBB WILL CONTINUE TO ASSESS AND MONITOR PER NURSING
[2018-07-21] VITALS (26 sets, daily range): BP systolic 93–158; BP diastolic 49–81
--- NOTE | 2018-07-21 07:48 | NUR ---
PT ALERT AND ORIENTED X2-3, AND PLEASANT. PT INITIALLY ON VENTIMASK AND SWITCHED TO BIPAP AT ABOUT 2245. PT WAS CALM FOR ABOUT AN HOUR, BUT WAS UNABLE TO SLEEP DUE TO DISCOMFORT AND BECAME RESTLESS. PT GIVEN ATIVAN X1. SHORTLY AFTER ADMINISTRATION, PT BECAME INCREASINGLY RESTLESS, BUT WHEN ASKED IF HE HAD PAIN OR WAS UNCOMFORTABLE HE SAID "NO". PT BECAME TACHYPNEIC AND NOT TOLERATING BIPAP. PT GIVEN MORPHINE X1, AND WITHIN AN HOUR, FELL ASLEEP. PT'S BREATHING WAS FAR LESS LABORED. NO OTHER EVENTS THE REST OF THE NIGHT. WILL CONTINUE TO MONITOR.
[2018-07-21 09:03] LABS: ABSOLUTE NEUTROPHILS 8.4 thou/uL (1.4-8.2); BASOPHILS 0.4 % (0.0-2.0); EOSINOPHILS 1.1 % (0.0-3.0); HEMATOCRIT 41.8 % (42.0-52.0); HEMOGLOBIN 14.2 gm/dL (14.0-18.0); LYMPHOCYTES 22.3 % (24.0-44.0); MCH 29.9 pg (26.0-34.0); MCHC 33.9 g/dL (28.0-37.0); MCV 88.2 fL (80.0-100.0); MONOCYTES 6.1 % (1.0-8.0); PLATELET COUNT 185 thou/uL (150-400); POLYS 70.1 % (36.0-66.0); RBC 4.73 mil/uL (4.50-6.00); RDW 13.1 % (10.5-14.5)
[2018-07-21 09:10] LABS: CALCIUM 8.7 mg/dL (8.5-10.1); CREATININE 0.7 mg/dL (0.7-1.3); POTASSIUM 3.4 mmol/L (3.5-5.1)
--- NOTE | 2018-07-21 14:52 | NUR ---
REMAINS ON BIPAP TODAY OXYGEN SATURATION AT 91 PERCENT ON OXYGEN VENTI MASK AT 15 LITERS. LUNGS ARE DIMINISHED. SCD ON BILATERAL. REPOSITION Q 2 HOURS GETS BREATHING TREATMENT. SR WITH BBB ON THE CUSTOMER ASSISTANT. OWEN TO DD WITH CLEAR YELLLOW URINE PRESENT. ORIENTED X PERSON AND SITUATION OTHERWISE HE CAN GET CONFUSED AT TIMES. BED ALARM IS ON TO MAINTAIN SAFETY AND CALL LIGHT WITHIN REACH IF NEEDED.
[2018-07-22] VITALS (23 sets, daily range): BP systolic 120–164; BP diastolic 68–113
--- NOTE | 2018-07-22 04:06 | NUR ---
ASSUMED CARE OF PT. AT 1900. PT. SWITCHED TO BIPAP OVERNIGHT, FIO2 CHANGED TO 50%. WILL KEEP ON BIPAP FOR ABG THIS AM. PT. AWAKE AND CONFUSED ALL THROUGH NIGHT. NO BM, NO GAS. PT. MAIN CONCERN IS GETTING MASK OFF. PLAN OF CARE IS TO CONTINUE TO MAINTAIN OXYGENATION THROUGH BIPAP AND FACE MASK UNTIL ABG IMPROVES. WILL CONTINUE TO MONITOR.
[2018-07-22 04:54] LABS: ALBUMIN 2.6 g/dL (3.4-5.0); CALCIUM 8.3 mg/dL (8.5-10.1); CREATININE 0.6 mg/dL (0.7-1.3); POTASSIUM 3.2 mmol/L (3.5-5.1); TOTAL BILIRUBIN 0.9 mg/dL (<0.1-1.0); TOTAL PROTEIN 6.5 g/dL (6.4-8.2)
[2018-07-22 05:01] LABS: ABSOLUTE NEUTROPHILS 8.5 thou/uL (1.4-8.2); BASOPHILS 0.1 % (0.0-2.0); HEMATOCRIT 40.6 % (42.0-52.0); HEMOGLOBIN 13.8 gm/dL (14.0-18.0); LYMPHOCYTES 19.6 % (24.0-44.0); MCHC 33.9 g/dL (28.0-37.0); MCV 88.4 fL (80.0-100.0); MONOCYTES 5.9 % (1.0-8.0); PLATELET COUNT 194 thou/uL (150-400); POLYS 73.4 % (36.0-66.0); RBC 4.59 mil/uL (4.50-6.00); WBC 11.5 thou/uL (4.0-11.0)
[2018-07-22 05:14] LABS: BE(vivo) 5.8 mmol/L (-2 to +3); HCO3 31.6 mmol/L (22.0-26.0); PCO2 49.9 mmHg (35.0-45.0); PO2 99.5 mmHg (80.0-100.0); pH 7.419 (7.360-7.450); sO2 97.6 % (92.0-98.0)
--- NOTE | 2018-07-22 22:00 | NUR ---
ASSUMED CARE OF PT AT 1900. PT RESTLESS AND IMPULSIVE INITIALLY. PT TX'D TO STEPDOWN UNIT AT 2144. REPORT GIVEN ON PT TO UNIT BY DAY SHIFT RN.
[2018-07-23 01:24] VITALS: BP 159/75
[2018-07-23 04:00] VITALS: BP 157/65
[2018-07-23 05:53] LABS: BASOPHILS 0.3 % (0.0-2.0); EOSINOPHILS 0.6 % (0.0-3.0); HEMOGLOBIN 13.6 gm/dL (14.0-18.0); LYMPHOCYTES 19.4 % (24.0-44.0); MCH 29.6 pg (26.0-34.0); MCHC 33.3 g/dL (28.0-37.0); MCV 89.1 fL (80.0-100.0); MONOCYTES 5.6 % (1.0-8.0); PLATELET COUNT 189 thou/uL (150-400); POLYS 74.1 % (36.0-66.0); RDW 13.4 % (10.5-14.5); WBC 10.8 thou/uL (4.0-11.0)
[2018-07-23 06:04] LABS: CALCIUM 8.8 mg/dL (8.5-10.1); CREATININE 0.6 mg/dL (0.7-1.3); POTASSIUM 3.4 mmol/L (3.5-5.1)
--- NOTE | 2018-07-23 06:22 | NUR ---
PATIENT IS ALERT TO SELF AND TIME. PATIENT IS IMPULSIVE AT TIMES. PATIENT IS Q2TURN. PATIENT IS NSR C BBB ON TELE. PATIENTS LBM WAS THE 30TH. PATIENT HAS A OWEN. PATIENTS NG WAS DC THE 30TH. PATIENT WAS EXTUBATED ON THE 30. PATENT IS ON 5LNC AND BIPAP HS. PATIENT IS ON CONTINOUS PULSE OX. PATIENT TAKES PILLS CRUSHED WITH HONEY THICK LIQUIDS. PATIENT IS Q6 ACCUCHECKS. PATIENT IS FROM A [facility] UNIT. PATIENT DENIES PAIN. PATIENT IS RESTING COMFORTABLY IN BED. WCM. PATIENT IS PROGRESSING TO GOALS.
[2018-07-23 07:39] VITALS: BP 133/78
--- NOTE | 2018-07-23 14:26 | NUR ---
ALEXIA reviewed chart and spoke with nursing. Pt was transferred to from ICU over the weekend and is slowly progressing towards goals for discharge. Pt is on 4-5L O2 via NC. Pt has been using bipap at nighttime. PT/OT evaluated pt today. DonaldN is following. ALEXIA left voice message for pt's cousin/DPOA, Tomas, to provide update. ALEXIA spoke with Randee, at [facility] to provide update as well. ALEXIA is following to assist as needed with discharge planning.
[2018-07-23 15:32] VITALS: BP 137/87
--- NOTE | 2018-07-23 18:21 | NUR ---
PATIENT NOTED TO BE QUITE IMPULSIVE THIS PM. KEEPS STATING HE WANTS TO GO HOME. STATES HE DOES NOT WANT TO BE HERE ANYMORE HE WILL LOSE HIS JOB. KEEPS ATTEMPTING TO LEAVE CHAIR WITHOUT ASSIST. OWEN DISCONUED. HE HAS NOT VOIDED YET. WILL CONT WITH PLAN OF CARE.
[2018-07-23 19:09] VITALS: BP 140/86
--- NOTE | 2018-07-24 02:09 | NUR ---
FUNERAL GREETER (EFRAÍN) FROM WHERE PT IS FROM PULLED NOC AND SAID PT SISTER FROM A CO WHILE PT WAS IN ICU AND ON THE VENT. PT DOES NOT KNOW AND SHE EXPRESSED STRONG EMOTIONS THAT WE SHOULD NOT TELL HIM. HE WANTS TO CALL HIS SISTER, WE NEED TO DISTRACT. DPOA OF PT IS ARRANGING PLANS WITH [facility] IN [place]. EFRAÍN STATES THAT PT SISTER IS BEING CREMATED AND WILL HAVE GRAVESIDE SERVICE ONCE PT IS DC/RELEASED FROM REHAB.
[2018-07-24 04:20] VITALS: BP 133/71
--- NOTE | 2018-07-24 06:35 | NUR ---
PT OWEN WAS REMOVED YESTERDAY. HE STATES HE NEEDS TO VOID, BUT DOES NOT AND HAS INCONTINENCE. ALSO 2 BOUTS OF FECAL INCONTINENCE. FOLLOWING POC WITH IVPB ANTIBIOTICS. PT DIET WAS MOVED TO PUREED AND HONEY THICK. PT ABLE TO TAKE PILLS WITH HONEY THICK LIQUID. PT ACCU CHECK MOVED TO [facility] DUE TO EATING SOLIDS. HOURLY ROUNDING.
[2018-07-24 07:10] VITALS: BP 156/75
--- NOTE | 2018-07-24 10:38 | NUR ---
care of pt assumed this am @ ~ 0700. pt noted to be awake, engaging in converstations w/ numerous staff w/ a happy attitude this am. pt w/ a good appetite for breakfast and his honey thickened liquids. pt received a bath this am and an external male catheter placed due to his incontinence. pt telling rn stories about those he lives with in his home @ [facility].
--- NOTE | 2018-07-24 14:58 | NUR ---
SW reviewed chart and spoke with nursing. Pt is slowly progressing towards goals for discharge. Awaiting input from DonaldN regarding admission to in pt acute rehab. ALEXIA spoke with pt's cousin/DPOA, Tomas, via phone to provide update. Tomas states that pt's sister unexpectedly while pt was in the ICU. Pt does not know. Pt's DPOA requests that staff do not tell pt, as pt will be told [facility]. Family is arranging a grave side service when pt will be able to attend. This information relayed to pt's nurse and will be passed on in report. SW is following to assist as needed with discharge planning.
[2018-07-24 15:27] VITALS: BP 125/76
[2018-07-24 19:09] VITALS: BP 127/84
[2018-07-25] VITALS (7 sets, daily range): BP systolic 135–164; BP diastolic 74–84
--- NOTE | 2018-07-25 06:05 | NUR ---
PT FREQUENTLY TAKING OF NASAL CANULA. FREQUENT BOUTS OF INCONTENENCE. PT WANTS TO LEAVE TO GO SEE HIS DOG AT THE FACILITY. FOLLOWING POC WITH IVPB. PT REMOVED EXTERNAL CATH. PT EATS WELL AND DRINKS COPIUS AMOUNTS OF FLUIDS. HOURLY ROUNDING.
--- NOTE | 2018-07-25 11:35 | NUR ---
VASCULAR ACCESS NURSE ROUNDING. THIS PATIENT HAS COMPLETED HIS IV ANTIBIOTIC THERAPY AND IS NOW ON IV MAINTENANCE ONLY. RECOMEND PIV PLACEMENT AND PICC LINE REMOVAL TO DECREASE INFECTION RISK IF PRIMARY APPROVES.
--- NOTE | 2018-07-25 14:14 | NUR ---
ALEXIA reviewed chart and spoke with nursing. Pt is progressing towards goals for discharge. SW discussed case with rn rehabilitation, who states they are continuing to follow pt for admission to in acute rehab. Awaiting additional therapy notes at this time and bed availability on . SW is following to assist as needed with discharge planning.
--- NOTE | 2018-07-25 16:29 | NUR ---
witnessed fall (by rn and commercial administrator) of pt in room @ 1524 today. pt awake, alert and oriented x4 before and after fall. no injury incurred by pt, will continue to observe. dr. andrade notified by phone, w/ return phone call to rn. no family notified as pt is a resident of the [facility]. EVD#[id number].
--- NOTE | 2018-07-25 19:52 | NUR ---
pt very hopeful/longing to be dischared today. pt needed much redirection to call staff for assistance (as he would forget) rather he would try to do for himself. pt able to tell staff he needed to use the bthrm, then w/ futher questions the staff would determine if the pt ment bowel or bladder. pt able to use the urinal w/ help. pt noted to be incontinent of stool today. pt w/ a great appetite for food and his nectar thick liquids. pt denies soa and no pain today. pt spoke of his desire to speak to his home care scheduler/female at [facility]. call placed to her, but she was out of the home and requested to call [facility] 3w back, no return call received. cm trying to get pt up to [facility] for rehabilitation, over the next few days, before returning to [facility]. no visitors to see pt today.
[2018-07-26 04:00] VITALS: BP 157/90
[2018-07-26 04:15] VITALS: BP 81/35
--- NOTE | 2018-07-26 04:41 | NUR ---
PATIENT IS PROGRESSING IN HIS CARE PLAN. VITAL SIGNS STABLE WITH PATIENT HAVING NO COMPLAINTS OF PAIN OR NAUSEA. PATIENT REMAINS ALERT AND ORIENTED ANYWHERE FROM 2-3 WITH RE DIRECTABLE CONFUSION AND FORGETFULNESS NOTED. BREATHING STABLE ON NASAL CANNULA EVIDENCED BY SPOT OXYGENATION CHECKS. PATIENT DOES PULL OFF NASAL CANNULA FREQUENTLY. SWALLOW PRECAUTIONS DUE TO ASPIRATION RISK. PATIENT IS A HIGH FALL RISK AND IS IMPULSIVE. HE HAD A CONTROLLED FALL TODAY ON DAY SHIFT. URINARY RETENTION NOTED WITH BLADDER SCAN NOTING 465 CC. ORDERS OBTAINED FOR STRAIGHT CATH AND FLOMAX. BOWEL MOVEMENT ON BEDSIDE COMMODE WITH ASSISTANCE INCIDENT FREE. PATIENT REMAINS ANXIOUS FOR DISCHARGE. CONTINUE PLAN OF CARE.
[2018-07-26 07:08] VITALS: BP 155/74
--- NOTE | 2018-07-26 12:22 | HC ---
[facility] [place] [address] CONSULTATION Name: YASH NAIK Room #: 351-P [facility] IN M.R.#: [id number] Admission: 07/10/18 ������������������ Attend Phys: Denzel Joseph [facility] Dis[facility]: ������������������ Date of : 64 Report #: [id number] THIS REPORT FOR: //name// CC: Denzel Joseph DATE OF SERVICE: 07/20/2018 HISTORY OF PRESENT ILLNESS: The patient is a 57-year-old white male, who lives in a usp at [facility]. He has a history of schizoaffective disorder, premorbidly independent, ambulatory without gait aids. He had an episode of unresponsiveness at the dinner table. Apparently, he had emesis with that of some pieces of meat and there was onset of acute respiratory failure. He was admitted and intubated with prolonged ICU stay. Intubation was on 07/10/2018, and from my review, he was not extubated until 07/19/2018. He is still on the Ventimask. He did have some problems while intubated with some confusion, warranting wrist restraints. He has been given some sedating medication. HE appears to be improving. He does have premorbid cognitive deficits that are noted along with his schizoaffective disorder. He is being treated for bilateral lower lobe infiltrates and is diagnosed with aspiration pneumonia as well as chronic obstructive pulmonary disease exacerbation. We are seeing him in rehabilitation medicine consultation. PAST MEDICAL HISTORY: Includes COPD, diabetes mellitus type 2, hypertension, schizoaffective disorder, exogenous obesity. Also includes gastritis, he has got a lazy eye on the left, hypertension, diabetes mellitus type 2, seasonal allergies, glaucoma, pedal edema. MEDICATIONS: Please see the full medication list as noted. ALLERGIES: No known drug allergies. SOCIAL HISTORY: As noted above, he lives at [facility], independent ambulatory without gait aids. He smoked cigarettes in the distant past. He is a nondrinker. FAMILY HISTORY: Noncontributory. REVIEW OF SYSTEMS: Denies any current complaints of any chest pain, shortness of breath, or abdominal discomfort. He is currently in the ICU on Ventimask. He is wanting coffee and I told him that this was not appropriate at this time. PHYSICAL EXAMINATION: GENERAL: A 57-year-old male, in no obvious distress, currently in the ICU on the Ventimask. VITAL SIGNS: His temperature is 98.4, pulse 78, respirations 16, blood pressure is 95/45. [address] [address] CONSULTATION Name: YASH NAIK Room #: 351-P [facility]#: [id number] Admission: 07/10/18 ������������������ Attend Phys: Denzel Joseph MD, [facility]F Discharge: ������������������ Date of : 64 Report #: [id number] NEUROLOGIC: He is an alert white male with significant exogenous obesity. He does have a lazy left eye. He is able to follow basic commands. He has definite latency to his responses. He appears to have decreased attention. HEENT: Facies otherwise appeared symmetric. EXTREMITIES: Functional range of motion of the upper extremities with strength only a grade 3 to 3+/5. Lower extremities with some distal pedal edema, strength is probably a grade 3 to 3+. DTRs are trace to 1. No clonus. ASSESSMENT: A 57-year-old white male with the following problem list: 1. 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 2. Rule out component of hypoxic encephalopathy with his unresponsive episode. Difficult to tell with his premorbid cognitive impairment. 3. History of schizoaffective disorder. 4. Acute respiratory failure. He has now been extubated. 5. Chronic obstructive pulmonary disease exacerbation. 6. Aspiration pneumonia. 7. Exogenous obesity. 8. Diabetes mellitus type 2. 9. Hypertension. PLAN: Therapy evaluations are underway. We will be glad to follow along with you regarding rehab therapy issues. Pending on his tolerance, he certainly may be a candidate for an acute in-hospital inpatient rehabilitation stay as he further medically stabilizes. We will be glad to follow along with you. ��������������������������������������������� <ELECTRONICALLY SIGNED> ���������������������������������������� By: Faustino Ruelas MD ��������������������������������������������� 07/26/18 1222 [id number] Faustino Ruelas MD /nt
--- NOTE | 2018-07-26 12:45 | NUR ---
ALEXIA reviewed chart and spoke with attending physician. Pt is medically stable for discharge today. Physician and care home director, Randee, have stated that pt can return to the care home and will do outpatient therapy. Pt will most likely need home O2. Rest/exercise oximetry ordered. ALEXIA spoke with Randee, via phone to provide update. Randee is agreeable with plan and states she will be able to rock picker pt when he is discharged. Bobby Doherty uses [facility] for home O2. ALEXIA faxed face sheet and info to [facility] and notified [facility] liaisonMaria Eugenia. Awaiting rest/exericse oximetry to be completed. ALEXIA left voice message for pt's cousin/DPOA, oTmas. ALEXIA updated [facility] liaison. ALEXIA is following to assist as needed with discharge planning.
[2018-07-26 14:30] VITALS: BP 155/74
[2018-07-26 15:15] VITALS: BP 152/74
[2018-07-26] MEDS ORDERED: PREDNISONE 20 M20 M1 PO (16:32)
--- NOTE | 2018-07-26 17:29 | NUR ---
multiple attempts to call facility. [phone] no longer working line. calls out to . waiting for call back.
== END 2018-07-26 18:57 | disposition home or self-care (01) | DRG 207 ==
LOC: ER 22:34 → EROBS 07-10 05:29 → ICU 07-10 06:06 → 3W 07-22 21:51
PROVIDERS: Emergency Medicine; Internal Medicine; Internal Medicine Pulmonary Disease; Pediatrics; ADMIT Family Medicine
DX: J69.0 Pneumonitis due to inhalation of food and vomit (principal); J96.01 Acute respiratory failure with hypoxia; J96.02 Acute respiratory failure with hypercapnia; J44.1 Chronic obstructive pulmonary disease with (acute) exacerbation; T17.920A Food in respiratory tract, part unspecified causing asphyxiation, initial encounter; F25.9 Schizoaffective disorder, unspecified; J30.2 Other seasonal allergic rhinitis; E66.09 Other obesity due to excess calories; I10 Essential (primary) hypertension; E11.9 Type 2 diabetes mellitus without complications; Z68.32 Body mass index [BMI] 32.0-32.9, adult; H40.9 Unspecified glaucoma; Z87.891 Personal history of nicotine dependence; X58.XXXA Exposure to other specified factors, initial encounter; Y93.89 Activity, other specified; Y92.89 Other specified places as the place of occurrence of the external cause; Y99.8 Other external cause status; Z79.899 Other long term (current) drug therapy
CPT/HCPCS: 10078; 10879; 27000

== ENCOUNTER → 2018-11-01 | Outpatient (CLI) | payer OTHER ==
[~2018-11-01] MED LIST changes: +ADVAIR 250-501 EACH INH; +AMLODIPINE BESY10 MG PO; +ARISTADA1064 MG/3. IM; +BIOFREEZE118 ML TOP; +DICYCLOMINE HCL20 MG PO; +FLEXERIL PO; +LATANOPROST 0.7.5 ML; +METOPROLOL TART25 MG PO; +MILK OF MA400 MG/5 M PO; +NON-ASPIRIN EX500 M1 PO; +OMEPRAZOLE 20 M20 M1 PO; +PREDNISONE 20 M20 M1 PO; +PROSCAR 5MG TABL5 MG PO; +ROBITUSSIN COU237 M2 PO; +SYNTHROID100 MC1 PO
== END ==
LOC: RAD 09:08
DX: R06.02 Shortness of breath (principal)

== ENCOUNTER 2020-07-02 18:14 | Emergency (ER) | payer OTHER ==
[~2020-07-02] VITALS: Ht 193 cm; Wt 90.7 kg
[2020-07-02 18:45] LABS: ABSOLUTE NEUTROPHILS 7.3 thou/uL (1.4-8.2); BASOPHILS 0.7 % (0.0-2.0); EOSINOPHILS 0.5 % (0.0-3.0); HEMATOCRIT 41.6 % (42.0-52.0); HEMOGLOBIN 14.2 gm/dL (14.0-18.0); LYMPHOCYTES 18.1 % (24.0-44.0); MCH 30.3 pg (26.0-34.0); MCHC 34.1 g/dL (28.0-37.0); MCV 88.8 fL (80.0-100.0); MONOCYTES 7.6 % (1.0-8.0); PLATELET COUNT 183 thou/uL (150-400); POLYS 73.1 % (36.0-66.0); RBC 4.68 mil/uL (4.50-6.00); RDW 14.5 % (10.5-14.5)
[2020-07-02 18:59] LABS: CALCIUM 8.4 mg/dL (8.5-10.1); CREATININE 0.8 mg/dL (0.7-1.3); POTASSIUM 4.3 mmol/L (3.5-5.1)
[2020-07-02 19:07] LABS: ALBUMIN 3.2 g/dL (3.4-5.0); TOTAL BILIRUBIN 0.3 mg/dL (0.2-1.0); TOTAL PROTEIN 7.6 g/dL (6.4-8.2)
[2020-07-02 19:18] LABS: URINE BILIRUBIN NEGATIVE (Negative); URINE BLOOD TRACE (Negative); URINE CLARITY CLEAR; URINE COLOR YELLOW; URINE GLUCOSE-RANDOM* NEGATIVE (Negative); URINE KETONES 1+ (Negative); URINE LEUKOCYTES-REFLEX NEGATIVE (Negative); URINE NITRITE-REFLEX NEGATIVE (Negative); URINE PROTEIN (DIPSTICK) NEGATIVE (Negative); URINE SPECIFIC GRAVITY 1.025 (1.005-1.035)
[2020-07-02] MEDS ORDERED: NORCO5 PO (21:17)
[2020-07-03 05:49] VITALS: BP 131/61
--- NOTE | 2020-07-03 06:48 | EKG ---
[place] [address] [facility] [email or web address] [address] ELECTROCARDIOGRAM REPORT Name: YASH NAIK [id number] Admission: 07/02/20 Attend Phys: Discharge: 07/03/20 Date of : 64 Report #: [id number] [facility] ED Test Date: 2020-07-02 Test Time: 19:46:57 Pat Name: YASH NAIK Department: Room: Gender: M Clinical Rehabilitation Liaison: JARRED : 1960 Requested By: Rah Garcia Order Number: [id number] MD: Meir Curry Measurements Intervals [place] Rate: 83 P: OR: QRS: -88 QRSD: 164 T: 50 QT: 424 QTc: 499 Interpretive Statements Atrial flutter with predominant 3:1 AV block RBBB and LAFB Compared to ECG 07/09/2018 23:43:50 AV block, advanced (high-grade) now present Sinus rhythm no longer present Electronically Signed On 07-03-2020 6:48:28 CDT by Meir Curry [email or web address] <ELECTRONICALLY SIGNED> By: Meir Curry MD, [facility] 07/03/20 [id number] 45 Meir Curry MD, [facility] /EPI
== END 2020-07-03 05:51 | disposition home or self-care (01) ==
LOC: ER 18:14
PROVIDERS: Physician Assistant
DX: M48.061 Spinal stenosis, lumbar region without neurogenic claudication (principal); F25.9 Schizoaffective disorder, unspecified; J44.9 Chronic obstructive pulmonary disease, unspecified; I10 Essential (primary) hypertension; E11.9 Type 2 diabetes mellitus without complications; E66.9 Obesity, unspecified; Z68.24 Body mass index [BMI] 24.0-24.9, adult; Z79.899 Other long term (current) drug therapy; Z87.891 Personal history of nicotine dependence